=== PATIENT | male | born 1985 | race Caucasian/White ===

== ENCOUNTER 2020-04-20 14:55 | Emergency (ER) | payer SELFPAY ==
[~2020-04-20] VITALS: Ht 193 cm; Wt 104.0 kg
[~2020-04-20 14:55] MED LIST: ALPR1TAB11 PO; DIVA-20 PO; LAMO100T69 PO
--- NOTE | 2020-04-20 15:26 | ED General ---
General Stated Complaint: SUICIDAL Source of Information: Patient Exam Limitations: No Limitations History of Present Illness Date Seen by Provider: Apr 20, 2020 Time Seen by Provider: 15:23 Initial Comments To ER by private vehicle with reports that he would like help with his mental health. He states that he's been very depressed for the past month. He was previously on antidepressants outpatient many years ago but is not currently on any medications. He is engaged but states that his is also anxious and depressed and is unpleasant to him. He feels like his family has turned his back on him. He states "I've been a piece of shit most of my life but Amena been trying to turn around". He told his friend this morning, the only person he can confide in, that he wanted to shoot himself. He has never been hospitalized inpatient for mental health disorder. Timing/Duration: Constant, Getting Worse Severity: Moderate Associated Systoms: Denies Symptoms Allergies and Home Medications Allergies Coded Allergies: No Known Drug Allergies (Unverified , 05/23/12) Home Medications Alprazolam 1 Mg Tab.rapdis, 1 MG PO PRN, (Reported) Brexpiprazole 0.25 Mg Tablet, 0.25 MG PO DAILY Prescribed by: HOWARD SCHUMACHER on 04/20/201713 Divalproex Sodium 500 Mg Tablet.dr, 500 MG PO DAILY, (Reported) Divalproex Sodium 500 Mg Tablet.dr, 1.5 TAB PO BID Prescribed by: HOWARD SCHUMACHER on 04/20/201713 Lamotrigine 100 Mg Tablet, 1 EACH PO DAILY, (Reported) Sertraline HCl 50 Mg Tablet, 50 MG PO DAILY Prescribed by: HOWARD SCHUMAHCER on 04/20/201713 Patient Home Medication List Home Medication List Reviewed: Yes Review of Systems Review of Systems Constitutional: see HPI EENTM: see HPI Respiratory: no symptoms reported Cardiovascular: no symptoms reported Genitourinary: no symptoms reported Musculoskeletal: no symptoms reported Skin: no symptoms reported Psychiatric/Neurological: No Symptoms Reported Hematologic/Lymphatic: No Symptoms Reported Physical Exam Vital Signs Vital Signs - First Documented 04/20/20 15:15 Temp 37.0 Pulse 71 Resp 16 B/P (MAP) 151/100 (117) Pulse Ox 97 O2 Delivery Room Air Capillary Refill : Height, Weight, BMI Height: '" Weight: lbs. oz. kg; BMI Method: General Appearance: No Apparent Distress, WD/WN, Other (disheveled but alert, cooperative, appreciative.) Eyes: Bilateral Eye Normal Inspection, Bilateral Eye PERRL, Bilateral Eye EOMI HEENT: PERRL/EOMI, Normal ENT Inspection Neck: Full Range of Motion, Normal Inspection Respiratory: No Accessory Muscle Use, No Respiratory Distress Cardiovascular: Regular Rate, Rhythm, Normal Peripheral Pulses Gastrointestinal: Non Tender, Soft Extremity: Normal Capillary Refill, Normal Inspection Neurologic/Psychiatric: Alert, Oriented x3, No Motor/Sensory Deficits Skin: Normal Color, Warm/Dry Progress/Results/Core Measures Suspected Sepsis SIRS Temperature: Pulse: Respiratory Rate: Laboratory Tests 04/20/20 15:55: White Blood Count 9.1 Blood Pressure / Mean: Laboratory Tests 04/20/20 15:55: Creatinine 0.86, Platelet Count 253, Total Bilirubin 0.4 Results/Orders Lab Results Laboratory Tests Test 04/20/20 15:40 04/20/20 15:55 Range/Units Urine Color YELLOW Urine Clarity CLEAR Urine pH 5.0 5-9 Urine Specific [place] 1.025 H 1.016-1.022 Urine Protein NEGATIVE NEGATIVE Urine Glucose (UA) NEGATIVE NEGATIVE Urine Ketones NEGATIVE NEGATIVE Urine Nitrite NEGATIVE NEGATIVE Urine Bilirubin NEGATIVE NEGATIVE Urine Urobilinogen 0.2 < = 1.0 MG/DL Urine Leukocyte Esterase NEGATIVE NEGATIVE Urine RBC (Auto) NEGATIVE NEGATIVE Urine RBC NONE /HPF Urine WBC RARE /HPF Urine Squamous Epithelial Cells RARE /HPF Urine Crystals NONE /LPF Urine Bacteria TRACE /HPF Urine Casts NONE /LPF Urine Mucus MODERATE H /LPF Urine Culture Indicated NO Urine Opiates Screen NEGATIVE NEGATIVE Urine Oxycodone Screen NEGATIVE NEGATIVE Urine Methadone Screen NEGATIVE NEGATIVE Urine Propoxyphene Screen NEGATIVE NEGATIVE Urine Barbiturates Screen NEGATIVE NEGATIVE Ur Tricyclic Antidepressants Screen NEGATIVE NEGATIVE Urine Phencyclidine Screen NEGATIVE NEGATIVE Urine Amphetamines Screen NEGATIVE NEGATIVE Urine Methamphetamines Screen NEGATIVE NEGATIVE Urine Benzodiazepines Screen NEGATIVE NEGATIVE Urine Cocaine Screen NEGATIVE NEGATIVE Urine Cannabinoids Screen POSITIVE H NEGATIVE White Blood Count 9.1 4.3-11.0 10^3/uL Red Blood Count 5.15 4.35-5.85 10^6/uL Hemoglobin 15.7 13.3-17.7 G/DL Hematocrit 44 40-54 % Mean Corpuscular Volume 86 80-99 FL Mean Corpuscular Hemoglobin 31 25-34 PG Mean Corpuscular Hemoglobin Concent 36 32-36 G/DL Red Cell Distribution Width 13.5 10.0-14.5 % Platelet Count 253 130-400 10^3/uL Mean Platelet Volume 10.1 7.4-10.4 FL Neutrophils (%) (Auto) 64 42-75 % Lymphocytes (%) (Auto) 23 12-44 % Monocytes (%) (Auto) 6 0-12 % Eosinophils (%) (Auto) 6 0-10 % Basophils (%) (Auto) 1 0-10 % Neutrophils # (Auto) 5.8 1.8-7.8 X 10^3 Lymphocytes # (Auto) 2.1 1.0-4.0 X 10^3 Monocytes # (Auto) 0.5 0.0-1.0 X 10^3 Eosinophils # (Auto) 0.5 H 0.0-0.3 10^3/uL Basophils # (Auto) 0.1 0.0-0.1 10^3/uL Sodium Level 139 135-145 MMOL/L Potassium Level 4.0 3.6-5.0 MMOL/L Chloride Level 107 98-107 MMOL/L Carbon Dioxide Level 21 21-32 MMOL/L Anion Gap 11 5-14 MMOL/L Blood Urea Nitrogen 16 7-18 MG/DL Creatinine 0.86 0.60-1.30 MG/DL Estimat Glomerular Filtration Rate > 60 BUN/Creatinine Ratio 19 Glucose Level 109 H 70-105 MG/DL Calcium Level 9.6 8.5-10.1 MG/DL Corrected Calcium 9.3 8.5-10.1 MG/DL Total Bilirubin 0.4 0.1-1.0 MG/DL Aspartate Amino Transf (AST/SGOT) 14 5-34 U/L Alanine Aminotransferase (ALT/SGPT) 18 0-55 U/L Alkaline Phosphatase 110 40-136 U/L Total Protein 7.4 6.4-8.2 GM/DL Albumin 4.4 3.2-4.5 GM/DL Salicylates Level < 5.0 L 5.0-20.0 MG/DL Acetaminophen Level < 10 L 10-30 UG/ML Serum Alcohol < 10 <10 MG/DL My Orders Orders - HOWARD SCHUMACHER APRN Cbc With Automated Diff (04/20/20 15:02) Comprehensive Metabolic Panel (04/20/20 15:02) Alcohol (04/20/20 15:02) Salicylate (04/20/20 15:02) Acetaminophen (04/20/20 15:02) Drug Screen Stat (Urine) (04/20/20 15:02) Ua Culture If Indicated (04/20/20 15:02) Ekg Tracing (04/20/20 15:02) Alprazolam Tablet (Xanax Tablet) (04/20/20 15:30) Vital Signs/I&O Capillary Refill : Departure Communication (Admissions) 1638-patient reports that he would prefer outpatient therapy rather than inpatient. He would like to start Zoloft which she has had good luck with before. He states that he does feel as if he would be safe to go home, he states that his plan to shoot himself was not really a plan but more of a passing thought, he didn't have specific plans as to how to go about that. He did not actually have a gun held to his head. He states "I just knew it was severe and I needed to get help but if I actually wanted to shoot myself I would've just done it" 1705-still calm and appropriate and pleasant. He states he is not opposed to inpatient and I did recommend that. However he doesn't feel like it would be helpful and would prefer restarting the Zoloft that he was on previously and doing outpatient therapy. He does not have access to a gun at home. He will be staying with his shayla Johnson at [phone], address [address] [place] [address]. His personal cell phone is [phone]. Spoke with Yang Pozo from [facility] and he agrees this would be an okay plan, he'll have someone make a phone call for follow-up tonight. Patient also states that his Depakote extended release 1500 mg once a day costs him about $400, he would like to switch to something cheaper. I called the pharmacy who reports that going to 750 mg twice a day would be quite a bit cheaper. Impression Primary Impression: Depression Qualified Codes: F32.9 - Major depressive disorder, single episode, unspecified Disposition: 01 HOME, SELF-CARE Condition: Stable Departure-Patient Inst. Decision time for Depature: 17:07 Referrals: VANESSA TRIPATHI MD (PCP) Primary Care Physician RENNY POWERS MD (Family) Primary Care Physician Patient Instructions: Depression Add. Discharge Instructions: 1. [facility] will be calling you this evening to arrange follow-up for you and to check on your well-being. If you have any recurrent thoughts of suicide please return promptly to the emergency room. Scripts Divalproex Sodium (Depakote) 500 Mg Tablet.dr 1.5 TAB PO BID, #90 TAB Prov: HOWARD SCHUMACHER APRN 04/20/20 Brexpiprazole (Rexulti) 0.25 Mg Tablet 0.25 MG PO DAILY, #30 TAB Prov: HOWARD SCHUMACHER APRN 04/20/20 Sertraline HCl (Zoloft) 50 Mg Tablet 50 MG PO DAILY, #30 TAB 1 Refill Prov: HOWARD SCHUMACHER APRN 04/20/20 HOWARD SCHUMACHER APRN Apr 20, 2020 15:26
[2020-04-20] MEDS ORDERED: ALPRAZolam 0.5 MG (XANAX) TAB PO SCH (15:30)
[2020-04-20 15:49] LABS: BILIRUBIN,URINE NEGATIVE (NEGATIVE); COLOR,URINE YELLOW; GLUCOSE, URINE (UA) NEGATIVE (NEGATIVE); KETONES,URINE NEGATIVE (NEGATIVE); LEUKOCYTE ESTERASE ,URINE NEGATIVE (NEGATIVE); NITRITE,URINE NEGATIVE (NEGATIVE); PROTEIN,URINE NEGATIVE (NEGATIVE)
[2020-04-20 15:59] LABS: BACTERIA,URINE TRACE /HPF; CLARITY,URINE CLEAR; SQUAMOUS EPITHELIAL CELL,UR RARE /HPF; WBC,URINE RARE /HPF
[2020-04-20 15:59] LABS: BASOPHILS # (AUTO) 0.1 10^3/uL (0.0-0.1); BASOPHILS % (AUTO) 1 % (0-10); EOSINOPHILS # (AUTO) 0.5 10^3/uL (0.0-0.3); EOSINOPHILS % (AUTO) 6 % (0-10); HEMATOCRIT 44 % (40-54); HEMOGLOBIN 15.7 G/DL (13.3-17.7); LYMPHOCYTES # (AUTO) 2.1 X 10^3 (1.0-4.0); LYMPHOCYTES % (AUTO) 23 % (12-44); MEAN CORPUSCULAR HEMOGLOBIN 31 PG (25-34); MEAN CORPUSCULAR HGB CONC 36 G/DL (32-36); MEAN CORPUSCULAR VOLUME 86 FL (80-99); MEAN PLATELET VOLUME 10.1 FL (7.4-10.4); MONOCYTES # (AUTO) 0.5 X 10^3 (0.0-1.0); MONOCYTES % (AUTO) 6 % (0-12); NEUTROPHILS # (AUTO) 5.8 X 10^3 (1.8-7.8); NEUTROPHILS % (AUTO) 64 % (42-75); PLATELET COUNT 253 10^3/uL (130-400); WHITE BLOOD COUNT 9.1 10^3/uL (4.3-11.0)
[2020-04-20 16:00] LABS: AMPHETAMINE SCREEN, URINE NEGATIVE (NEGATIVE); BARBITURATE SCREEN URINE NEGATIVE (NEGATIVE); BENZODIAZEPINES SCREEN URINE NEGATIVE (NEGATIVE); CANNABINOID SCREEN, URINE POSITIVE (NEGATIVE); COCAINE SCREEN URINE NEGATIVE (NEGATIVE); METHADONE STAT NEGATIVE (NEGATIVE); METHAMPHETAMINE SCREEN URINE S NEGATIVE (NEGATIVE); OPIATE SCREEN URINE NEGATIVE (NEGATIVE); OXYCODONE STAT NEGATIVE (NEGATIVE); PROPOXYPHENE STAT NEGATIVE (NEGATIVE); TRICYCLIC ANTIDEPRESSANTS SCRE NEGATIVE (NEGATIVE)
[2020-04-20 16:09] LABS: ALBUMIN 4.4 GM/DL (3.2-4.5); CHLORIDE 107 MMOL/L (98-107); SODIUM 139 MMOL/L (135-145)
[2020-04-20 16:10] LABS: CALCIUM 9.6 MG/DL (8.5-10.1)
[2020-04-20 16:12] LABS: GLUCOSE 109 MG/DL (70-105); TOTAL PROTEIN 7.4 GM/DL (6.4-8.2)
[2020-04-20 16:13] LABS: BILIRUBIN,TOTAL 0.4 MG/DL (0.1-1.0); CARBON DIOXIDE 21 MMOL/L (21-32)
[2020-04-20 16:15] LABS: ALKALINE PHOSPHATASE 110 U/L (40-136); CREATININE SERUM 0.86 MG/DL (0.60-1.30); GFR ESTIMATED > 60
[2020-04-20 16:17] LABS: ACETAMINOPHEN < 10 UG/ML (10-30); BUN/CREATININE RATIO 19
[2020-04-20 16:18] LABS: ALANINE AMINOTRANSFERASE 18 U/L (0-55); SALICYLATE < 5.0 MG/DL (5.0-20.0)
--- NOTE | 2020-04-20 17:05 | NUR ---
CLOTHES GIVEN BACK TO PT ET PLAN IS TO GO HOME.
[2020-04-20] MEDS ORDERED: SERT50TA2 PO (17:14)
[2020-04-20] MEDS ORDERED: BREX0.25 PO (17:14)
[2020-04-20] MEDS ORDERED: DIVA500T PO (17:14)
--- NOTE | 2020-04-20 17:20 | NUR ---
PT STATES HE FEELS SAFE GOING HOME WITH NO PLANS TO HARM HIMSELF. PT THANKFUL FOR THE CARE GIVEN.
[2020-04-20 17:23] VITALS: BP 114/90
== END 2020-04-20 17:23 | disposition home or self-care (01) ==
LOC: EDUNIT# 14:55 → ER 15:00
DX: F32.9 Major depressive disorder, single episode, unspecified (principal)
CPT/HCPCS: 80053; 80306; 81000; 85025; 93005; 99283; G0480 ×3; 36415; 80320; 80329